=== PATIENT | male | born 1950 | race Caucasian/White ===

== ENCOUNTER 2016-07-26 07:44 | Day surgery (SDC) | payer MEDICARE, BC ==
[~2016-07-26] VITALS: Ht 175.3 cm; Wt 58.2 kg
[~2016-07-26 07:44] MED LIST: CELE20TA PO; LANTUS2P SQ; chemo
[2016-07-26 08:02] VITALS: BP 106/62; PULSE 71; RESP 20; TEMP 98.5; O2SAT 95
[2016-07-26] MEDS ORDERED: OXYC-395 PO (08:11)
[2016-07-26] MEDS ORDERED: B12-1CHW SL (08:11)
[2016-07-26] MEDS ORDERED: CHLORHEXIDINE GLUCONATE 2 % 1 PACK (2 CLOTHS) TOPICAL SCH (08:30)
[2016-07-26] MEDS ORDERED: SODIUM CHLORIDE 0.9% 1000 ML IV SCH (08:30)
[2016-07-26] MEDS: ceFAZolin 2 GM PREMIX 50 ML - gastrostomy and jejunostomy initial insertion IV SCH ×2 (09:11→12:41)
[2016-07-26] MEDS: VANCOMYCIN 1000 MG/NS 250 ML - implanted port/tunneled catheter IV SCH ×4 (09:12→12:41)
[2016-07-26] MEDS ORDERED: fentaNYL CITRATE 250 MCG/5 ML AMP ONE (10:31)
[2016-07-26] MEDS ORDERED: MIDAZOLAM HCL 5 MG/5 ML VIAL ONE (10:31)
[2016-07-26] MEDS ORDERED: LIDOCAINE 1%/EPINEPHrine 1:100,000 SOLN 20 ML VIAL ONE (10:33)
--- NOTE | 2016-07-26 11:07 | PD.RAD ---
Post Procedure Progress Note Pre Procedure Diagnosis: (1) Multiple myeloma Post Procedure Diagnosis: (1) Multiple myeloma Procedure Date: Jul 26, 2016 Supervising Radiologist: Facundo Harper Anesthesia: Local, Conscious Sedation Plan of Activity Patient to Unit: ROPU Patient Condition: Fair Additional Comments: Port placed via the right IJ. Catheter in good position. OK for use See PACS Report for procedural detail/treatment Facundo Harper MD Jul 26, 2016 11:07
[2016-07-26 11:15] VITALS: BP 123/54; PULSE 73; RESP 18; TEMP 97.6; O2SAT 98
[2016-07-26] MEDS ORDERED: SODIUM CHLORIDE 0.9% FLUSH 5 ML FLUSH IVF PRN (11:15)
[2016-07-26 11:30] VITALS: BP 128/59; PULSE 66; RESP 18; O2SAT 98
[2016-07-26 12:00] VITALS: BP 123/53; PULSE 61; RESP 18; O2SAT 97
[2016-07-26 12:30] VITALS: BP 109/57; PULSE 63; RESP 18; O2SAT 97
[2016-07-26 13:00] VITALS: BP 112/60; PULSE 68; RESP 18; O2SAT 96
--- NOTE | 2016-07-26 15:00 | RADRPT ---
EXAM DATE/TIME: 07/26/2016 10:43 [facility] COMPARISON: No previous studies available for comparison. INDICATIONS : Patient with a history of multiple myeloma and pancreatic cancer. MEDICAL HISTORY : Positive HARMEET titer Barretts esophagus CAD Osteoporosis Mulitple myeloma Pancreatic cancer Prostate cancer SURGICAL HISTORY : Back surgery Colonoscopy Prostectomy Cholecystectomy CABG and stent Appendectomy ENCOUNTER: Initial ACUITY: >1 year PAIN SCORE: 5/10 LOCATION: Back FLUORO TIME: 0.7 minutes SEDATION TIME: 30 minutes ACCESS: Right internal jugular vein SEDATION: 1.) 1.5 mg midazolam (Versed) IV 2.) 75 mcg fentanyl (Sublimaze) IV Prophylactic antibiotics were administered with appropriate pre-procedure timing. Vancomycin within 2 hours of procedure, Ancef (or alternative) within 1 hour of procedure. DEVICE: 1. 8 [place] single lumen Bard Power Port PROCEDURE : 1. Continuous pulse oximetry and EKG monitoring. 2. Intravenous conscious sedation. 3. Ultrasound guidance for venous access. 4. Fluoroscopic guided implantable central venous port placement. The patient was placed supine. The neck was prepped in sterile fashion. Full sterile technique was u sed, including cap, mask, sterile gloves and gown, and a large sterile sheet. Hand hygiene and 2% ch lorhexidine Betadine was utilized per protocol for cutaneous antisepsis with appropriate dry time for site. The skin and subcutaneous tissues were infiltrated with local anesthetic solution. Under direct ultrasound guidance, central venous access was accomplished in the targeted vessel. The ultrasound images depicting access guidance were stored and saved to PACS for permanent record. A s ubcutaneous pocket was created using blunt dissection. The port was introduced to the pocket. The c atheter tubing was fed through a subcutaneous tunnel to the venotomy site. The catheter tubing was c ut to a suitable length and then was introduced through a valved Peel-Away sheath and positioned with catheter tubing tip at the cavo-atrial junction level. The pocket incision was closed with subcutic ular Vicryl suture. Steri-Strips were applied. The port was flushed and locked with heparin solutio n per protocol. Sterile dressing was applied to the site. The patient tolerated the procedure well. Conscious sedation was performed with the prescribed dosages and duration as above. The patient yaya ated the procedure well and there were no complications. EKG and oximetry remained stable throughout the procedure. The patient was sent to post anesthesia recovery in stable condition. CONCLUSION: Uncomplicated ultrasound and fluoroscopic guided implanted central venous port catheter placement as described in detail above. An 8 [place] Power port was placed. Facundo Harper MD on July 26, 2016 at 14:59 Board Certified Radiologist. This report was verified electronically.
[2016-08-20] MEDS ORDERED: PANT40TA3 PO (10:05)
[2016-08-20] MEDS ORDERED: ONDA1TAB17 PO (10:05)
[2016-08-20] MEDS ORDERED: MEGE40TA PO (10:05)
[2016-08-20] MEDS ORDERED: PROC10TA PO (10:05)
[2016-08-20] MEDS ORDERED: CITA20TA4 PO ×2 (10:05→10:18)
[2016-08-20] MEDS ORDERED: URSO300C2 PO (10:05)
[2016-09-02] MEDS ORDERED: LANTUS2P SQ (15:06)
[2016-09-04] MEDS ORDERED: OXYC-395 PO (17:03)
[2016-11-01] MEDS ORDERED: LANTUS2P SQ (12:08)
[2016-11-02] MEDS ORDERED: LANTUS2P SQ (15:41)
== END 2016-07-26 15:40 | disposition home or self-care (01) ==
LOC: HROP 07:44 → HRIP 07:45 → HROP 15:40
PROVIDERS: ATTEND Internal Medicine Hematology & Oncology
DX: C90.00 Multiple myeloma not having achieved remission (principal); I25.10 Atherosclerotic heart disease of native coronary artery without angina pectoris; M81.0 Age-related osteoporosis without current pathological fracture; Z85.46 Personal history of malignant neoplasm of prostate; Z85.07 Personal history of malignant neoplasm of pancreas; Z95.1 Presence of aortocoronary bypass graft
CPT/HCPCS: 36561; 76937; 77001; 99152; 99153; C1788; J0690; J1642; J2250; J3010; J3370; J7030; J7050

== ENCOUNTER 2016-09-11 11:41 | Emergency (ER) | payer MEDICARE, BC ==
[~2016-09-11] VITALS: Ht 175.3 cm; Wt 54.0 kg
[~2016-09-11 11:41] MED LIST changes: +B12-1CHW SL; -CELE20TA PO; +CITA20TA4 PO; +MEGE40TA PO; +ONDA1TAB17 PO; +OXYC-395 PO; +PANT40TA3 PO; +PROC10TA PO; +URSO300C2 PO
[2016-09-11 11:48] VITALS: BP 105/70; PULSE 101; RESP 16; TEMP 98; O2SAT 100
[2016-09-11] MEDS ORDERED: SODIUM CHLOR 0.9% 1000 ML INJ 1,000 ML IV SCH (12:13)
--- NOTE | 2016-09-11 12:16 | PD ---
HPI Chief Complaint: General Weakness Time Seen by Provider: 12:05 Travel History International Travel<30 days: No Contact w/Intl Traveler<30days: No Traveled to known affect area: No History of Present Illness HPI This is a 66-year-old male with a history of multiple myeloma and pancreatic cancer on chemotherapy who presents to the emergency department with intermittent abdominal pain for 2 weeks, in the right upper quadrant and epigastrium, nonradiating, associated with multiple episodes of vomiting and decreased oral intake. His last bowel movement was 3 days ago and normal. He denies any fevers or chills. She is on chemotherapy and his last treatment was one week ago. PFSH Past Medical History Hx Anticoagulant Therapy: No Heart Rhythm Problems: No Cancer: Yes Cardiac Catheterization: Yes Cardiovascular Problems: Yes High Cholesterol: Yes Chemotherapy: Yes Chest Pain: Yes Congestive Heart Failure: No Coronary Artery Disease: Yes Diabetes: Yes Patient Takes Glucophage: No Diminished Hearing: No Endocrine: Yes Gastrointestinal Disorders: Yes (ulcer) GERD: Yes Genitourinary: No Hepatitis: No Hiatal Hernia: No Heparin Induced Thrombocytopen: No Hypertension: Yes Immune Disorder: No Implanted Vascular Access Dvce: Yes Kidney Stones: Yes Medical other: Yes Musculoskeletal: Yes (multiple myloma) Neurologic: No Psychiatric: Yes (Anxiety and Depression) Reproductive: No Respiratory: No Immunizations Current: No Myocardial Infarction: Yes Radiation Therapy: No Tetanus Vaccination: > 5 Years Influenza Vaccination: No Past Surgical History AICD: No Appendectomy: Yes Body Medical Devices: CARDIAC STENTS Cardiac Surgery: Yes (Cabg) Cholecystectomy: Yes Coronary Artery Bypass Graft: Yes Coronary Stent: Yes (2003) Ear Surgery: No Endocrine Surgery: No Eye Surgery: No Genitourinary Surgery: Yes (Prostatectomy) Gynecologic Surgery: No Insulin Pump: No Joint Replacement: No Neurologic Surgery: No Pacemaker: No Thoracic Surgery: Yes Other Surgery: Yes (Cabg, colecystecomy, back x 3, appendectomy, prostectomy) Family History Family Myocardial Infarction: Yes Social History Alcohol Use: No Tobacco Use: Yes (1 PPD) Substance Use: No Allergies-Medications (Allergen,Severity, Reaction): Coded Allergies: Contrast Media (Verified Allergy, Severe, 09/11/16) Reported Meds & Prescriptions Reported Meds & Active Scripts Active Oxycodone (Oxycodone HCl) 10 Mg Tab 10 Mg PO Q8H PRN Lantus Inj (Insulin Glargine) 1,000 Unit/10 Ml Vial 20 Units SQ HS Citalopram (Citalopram Hydrobromide) 20 Mg Tab 20 Mg PO DAILY Reported Prochlorperazine Maleate 10 Mg Tab 10 Mg PO Q6H PRN Ondansetron (Ondansetron HCl) 8 Mg Tab 8 Mg PO DAILY Ursodiol 300 Mg Cap 300 Mg PO TID Megestrol (Megestrol Acetate) 40 Mg Tab 40 Mg PO QID Pantoprazole (Pantoprazole Sodium) 40 Mg Tab 40 Mg PO DAILY [id number]-Iehega (Methylcobalamin) 1 Mg Chew 3,000 Mg SL DAILY PRN [chemo] Review of Systems Except as stated in HPI: all other systems reviewed are Neg Physical Exam Narrative GENERAL: Cachectic, no acute distress SKIN: Warm and dry. HEAD: Atraumatic. Normocephalic. EYES: Pupils equal and round. No injection or drainage. ENT: Moist mucous membranes NECK: Trachea midline. CARDIOVASCULAR: Regular rate and rhythm. No murmur appreciated. RESPIRATORY: Clear to auscultation. Breath sounds equal bilaterally. GASTROINTESTINAL: Abdomen soft, non-tender, nondistended. MUSCULOSKELETAL: No obvious deformities. NEUROLOGICAL: Awake and alert. No obvious cranial nerve deficits. Moving all extremities. PSYCHIATRIC: Appropriate mood and affect; insight and judgment normal. Data Data Last Documented VS Vital Signs Date Time Temp Pulse Resp B/P Pulse Ox O2 Delivery O2 Flow Rate FiO2 09/11/16 13:11 16 99 Room Air 09/11/16 13:11 70 132/75 09/11/16 11:48 98.0 Orders Complete Blood Count With Diff (09/11/16 12:13) Comprehensive Metabolic Panel (09/11/16 12:13) Lipase (09/11/16 12:13) Urinalysis - C+S If Indicated (09/11/16 12:13) Iv Access Insert/Monitor (09/11/16 12:13) Ecg Monitoring (09/11/16 12:13) Oximetry (09/11/16 12:13) Sodium Chlor 0.9% 1000 Ml Inj (Ns 1000 M (09/11/16 12:13) Sodium Chloride 0.9% Flush (Ns Flush) (09/11/16 12:15) Ct Abd/Pel W/O Iv Contrast (09/11/16 ) Labs Laboratory Tests Test 09/11/16 09/11/16 12:30 13:33 White Blood Count 2.0 TH/MM3 Red Blood Count 3.13 MIL/MM3 Hemoglobin 9.4 GM/DL Hematocrit 28.1 % Mean Corpuscular Volume 89.9 FL Mean Corpuscular Hemoglobin 29.9 PG Mean Corpuscular Hemoglobin 33.3 % Concent Red Cell Distribution Width 14.8 % Platelet Count 139 TH/MM3 Mean Platelet Volume 7.8 FL Neutrophils (%) (Auto) 54.2 % Lymphocytes (%) (Auto) 31.3 % Monocytes (%) (Auto) 11.9 % Eosinophils (%) (Auto) 1.4 % Basophils (%) (Auto) 1.2 % Neutrophils # (Auto) 1.2 TH/MM3 Lymphocytes # (Auto) 0.6 TH/MM3 Monocytes # (Auto) 0.2 TH/MM3 Eosinophils # (Auto) 0.0 TH/MM3 Basophils # (Auto) 0.0 TH/MM3 CBC Comment DIFF FINAL Differential Comment Sodium Level 145 MEQ/L Potassium Level 3.9 MEQ/L Chloride Level 114 MEQ/L Carbon Dioxide Level 22.0 MEQ/L Anion Gap 9 MEQ/L Blood Urea Nitrogen 23 MG/DL Creatinine 1.70 MG/DL Estimat Glomerular Filtration 40 ML/MIN Rate Random Glucose 173 MG/DL Calcium Level 8.3 MG/DL Total Bilirubin 0.6 MG/DL Aspartate Amino Transf 7 U/L (AST/SGOT) Alanine Aminotransferase 14 U/L (ALT/SGPT) Alkaline Phosphatase 90 U/L Total Protein 5.8 GM/DL Albumin 2.9 GM/DL Lipase 121 U/L Urine Collection Type CLEAN CATCH Urine Color YELLOW Urine Turbidity CLEAR Urine pH 5.5 Urine Specific Ridge 1.017 Urine Protein 30 mg/dL Urine Glucose (UA) 100 mg/dL Urine Ketones NEG mg/dL Urine Occult Blood TRACE Urine Nitrite NEG Urine Bilirubin NEG Urine Leukocyte Esterase NEG Urine RBC 0-3 /hpf Urine Amorphous Sediment FEW Urine Fine Granular Casts 0-2 /lpf Microscopic Urinalysis Comment CULT NOT INDICATED MDM Medical Decision Making Medical Screen Exam Complete: Yes Emergency Medical Condition: Yes Medical Record Reviewed: Yes (patient is being followed by Dr. Mcmahon for pancreatic cancer and multiple myeloma. On chemotherapy.) Interpretation(s) White count is 2. Anemia Renal insufficiency Urinalysis: No infection CT abdomen and pelvis: Biliary stent in place. Lucency occupying at least half the L5 vertebral body. Differential Diagnosis Cholangitis, biliary stent obstruction, pancreatitis, gastritis, peptic ulcer disease Narrative Course This is a 66-year-old male who presents to the emergency department with right upper quadrant abdominal pain, nausea and vomiting for several days. He was placed on a monitor and an IV was established. Patient was pain-free in the emergency department. Labs were obtained which were reassuring with no evidence of biliary obstruction. CT abdomen and pelvis demonstrates a large lucency at L5. I don't appreciate an etiology for the patient's pain. His lesion at L5 was discussed with him. I think patient is safe for discharge. He was provided with Phenergan suppositories and he will follow up as an outpatient with Dr. Espinal and with Dr. Mcmahon. I did discuss the case with Dr. Mcmahon who is on-call and he will see the patient in the office. He thinks this lesion is due to the myeloma, and unfortunately he feels the patient is getting worse and refractory to treatment and may be appropriate for hospice consultation. They will discuss this further in the office. Diagnosis Primary Impression: Abdominal pain Qualified Code: R10.9 - Abdominal pain, unspecified location Patient Instructions: General Instructions Additional Instructions: If you develop weakness of your legs, difficulty walking, numbness of her legs or your genital or rectal area, loss of your bowel or bladder, or difficulty urinating return to the emergency department immediately. Follow-up with Dr. Mcmahon and Dr. Barboza in the office. Med/Other Pt SpecificInfo: Prescription(s) given Scripts Promethazine Supp 25 Mg Supp25 Mg RECTAL Q6H PRN (NAUSEA OR VOMITING) #15 SUPP Ref 0 Prov:Kezia Chung MD 09/11/16 Disposition: 01 DISCHARGE HOME Condition: Stable Kezia Chung MD Sep 11, 2016 12:16
[2016-09-11 12:34] VITALS: O2SAT 99
[2016-09-11] MEDS: SODIUM CHLORIDE 0.9% FLUSH 5 ML FLUSH IVF PRN ×2 (12:40→14:46)
[2016-09-11 12:56] LABS: AUTOMATED NEUTROPHIL # 1.2 TH/MM3 (1.8-7.7); BASOPHIL % 1.2 % (0.0-2.0); EOSINOPHIL % 1.4 % (0.0-4.0); HEMATOCRIT 28.1 % (39.0-51.0); HEMO FLAGS DIFF FINAL; LYMPH % 31.3 % (9.0-44.0); LYMPHOCYTE # 0.6 TH/MM3 (1.0-4.8); MEAN CELL VOLUME 89.9 FL (80.0-100.0); MEAN CORPUSCULAR HEMOGLOBIN 29.9 PG (27.0-34.0); MEAN CORPUSCULAR HGB CONC 33.3 % (32.0-36.0); MONO % 11.9 % (0.0-8.0); NEUT % 54.2 % (16.0-70.0); PLATELET COUNT 139 TH/MM3 (150-450); RED BLOOD COUNT 3.13 MIL/MM3 (4.50-5.90); RED CELL DISTRIBUTION WIDTH 14.8 % (11.6-17.2)
[2016-09-11 13:00] LABS: CHLORIDE 114 MEQ/L (98-107); POTASSIUM 3.9 MEQ/L (3.5-5.1); SODIUM (NA) 145 MEQ/L (136-145)
[2016-09-11 13:05] LABS: ANION GAP 9 MEQ/L (5-15); BLOOD UREA NITROGEN 23 MG/DL (7-18)
[2016-09-11 13:07] LABS: ALT (GPT) 14 U/L (12-78); AST (GOT) 7 U/L (15-37)
[2016-09-11 13:08] LABS: GLOMERULAR FILTRATION RATE 40 ML/MIN (>89)
[2016-09-11 13:09] LABS: TOTAL BILIRUBIN ADULT 0.6 MG/DL (0.2-1.0)
[2016-09-11 13:10] LABS: ALKALINE PHOSPHATASE 90 U/L (45-117)
[2016-09-11 13:11] VITALS: BP 132/75; PULSE 70; RESP 16; O2SAT 100
[2016-09-11 13:48] LABS: BLOOD, URINE TRACE (NEG); GLUCOSE,URINE 100 mg/dL (NEG); KETONE, URINE NEG (NEG); NITRITE,URINE NEG (NEG); PH, URINE 5.5 (5.0-8.5)
[2016-09-11 13:50] LABS: METHOD OF COLLECTION CLEAN CATCH; URINE COLOR YELLOW (YELLW/STRAW)
[2016-09-11 13:52] LABS: COMMENT (UR) CULT NOT INDICATED; CULTURE IF INDICATED CULT NOT INDICATED; RBC, URINE 0-3 /hpf (0-3)
--- NOTE | 2016-09-11 13:54 | RADHPO ---
EXAM DATE/TIME: 09/11/2016 12:42 [facility] COMPARISON: No previous studies available for comparison. INDICATIONS: Right upper quadrant pain with nausea and vomiting. ORAL CONTRAST: No oral contrast ingested. RADIATION DOSE: 4.53 CTDIvol (mGy) MEDICAL HISTORY: Carcinoma, prostate. Cardiovascular disease Hypertension. Weaver's esophagus. Multiple myeloma. SURGICAL HISTORY: Appendectomy. Coronary artery stent. Cholecystectomy. CABG. Prostatectomy. Liver stent. ENCOUNTER: Initial ACUITY: 4 - 6 days PAIN SCALE: 4/10 LOCATION: Right upper quadrant TECHNIQUE: Volumetric scanning of the abdomen and pelvis was performed. Using automated exposure control and ad justment of the mA and/or kV according to patient size, radiation dose was kept as low as reasonably achievable to obtain optimal diagnostic quality images. FINDINGS: There is a biliary drain in place. The patient is status post cholecystectomy. There is some small hypodensities measuring up to 1 cm seen at the periphery of the right lobe of the liver. These are nonspecific. T he spleen, pancreas, and adrenal glands appear normal. There is a 0.6 cm area of calcification seen at the left renal pelvis without dilatation of the collecting system. The right kidney is unremarkable. There are scattered atherosclerotic calcifications throughout the arterial system. An aneurysm is not present. There is some thickening of the rectum which may be secondary to lack of distention. This is nonspecific. The bowel is otherwise unremarka ble. The pelvis structures appear grossly intact. There is a prominent area of lucency seen at the L5 vertebral body measuring 3.4 cm in the AP image, 3.1 cm in the transverse image and 2.4 cm in height. This lucent area occupies at least half of the L5 vertebr al body. There is degenerative change seen in the lower thoracic and lumbar spine. Lung bases are unremarkable. CONCLUSION: 1. Biliary stent in place. 2. A 6 mm calcification seen at the left renal pelvis likely represent a non-obstructing stone. No dilatation of the collecting system is seen. 3. Prominent area of lucency occupying at least half the L5 vertebral body. No other focal bone les ions are seen. This is nonspecific. This could represent a benign process such a large hemangioma o r other benign lesion. A metastatic however cannot be excluded. The lesion does appear solitary. G iven its size the patient is at risk for collapse of the L5 vertebral body. Jorge Ware MD on September 11, 2016 at 13:03 Board Certified Radiologist. This report was verified electronically.
[2016-09-11] MEDS ORDERED: PROM1SUP9 RECTAL (14:20)
[2016-11-01] MEDS ORDERED: LANTUS2P SQ (12:08)
[2016-11-02] MEDS ORDERED: LANTUS2P SQ (15:41)
== END 2016-09-11 14:50 | disposition home or self-care (01) ==
LOC: PHED 11:41
DX: R10.9 Unspecified abdominal pain (principal); C90.00 Multiple myeloma not having achieved remission; Z79.899 Other long term (current) drug therapy; E78.00 Pure hypercholesterolemia, unspecified; I25.10 Atherosclerotic heart disease of native coronary artery without angina pectoris; I10 Essential (primary) hypertension; Z87.442 Personal history of urinary calculi; F41.8 Other specified anxiety disorders; I25.2 Old myocardial infarction; Z95.5 Presence of coronary angioplasty implant and graft; F17.210 Nicotine dependence, cigarettes, uncomplicated
CPT/HCPCS: 74176; 80053; 81001; 83690; 85025; 96360; 99284; J1642; J7030

== ENCOUNTER 2016-11-06 22:45 | Inpatient (IN) | payer MEDICARE, BC ==
[~2016-11-06] VITALS: Ht 175.3 cm; Wt 58.3 kg
[~2016-11-06 22:45] MED LIST changes: +PROM1SUP9 RECTAL
[2016-11-06 22:51] VITALS: BP 158/89; PULSE 91; RESP 18; TEMP 98.2; O2SAT 99
[2016-11-06] MEDS ORDERED: SODIUM CHLORIDE 0.9% FLUSH 10 ML FLUSH IV FLUSH PRN ×2 (23:15)
--- NOTE | 2016-11-06 23:47 | RADHPO ---
EXAM DATE/TIME: 11/06/2016 23:16 [facility] COMPARISON: CT ABDOMEN & PELVIS W/O CONTRAST, September 11, 2016, 12:42. EXTERNAL COMPARISON : [facility], CT Abd/pelvis November 04, 2016 INDICATIONS : Left flank pain. ORAL CONTRAST: No oral contrast ingested. RADIATION DOSE: 7.90 CTDIvol (mGy) MEDICAL HISTORY : Hypertension. Renal calculi. Carcinoma, pancreas. Carcinoma, prostate. Multiple Myeloma. SURGICAL HISTORY : Cholecystectomy. Appendectomy.Prostatectomy.Stent in liver. ENCOUNTER: Initial ACUITY: 1 day PAIN SCALE: 7/10 LOCATION: Left flank TECHNIQUE: Volumetric scanning of the abdomen and pelvis was performed. Using automated exposure control and ad justment of the mA and/or kV according to patient size, radiation dose was kept as low as reasonably achievable to obtain optimal diagnostic quality images. FINDINGS: LOWER LUNGS: The visualized lower lungs are clear. LIVER: 2 sub-1 cm low-density lesions are seen involving the right lobe. These are stable from the prior lazara dy. There are low in density.. There is a Silastic stent within the common bile duct. Pneumobilia not ed. No biliary dilatation appreciated. There is no dilation of the biliary tree. No calcified galls tones. SPLEEN: Normal size without lesion. PANCREAS: Within normal limits. KIDNEYS: A 7 mm stone is seen at the UPJ generating hydronephrosis. No perinephric stranding or fluid collecti ons. A 1 mm nonobstructing stone involving the right kidney. ADRENAL GLANDS: Within normal limits. VASCULAR: There is no aortic aneurysm. BOWEL/MESENTERY: The stomach, small bowel, and colon demonstrate no acute abnormality. There is no free intraperitone al air or fluid. Scattered colonic diverticuli. Barium within the colon. ABDOMINAL WALL: Within normal limits. RETROPERITONEUM: There is no lymphadenopathy. BLADDER: No wall thickening or mass. REPRODUCTIVE: Within normal limits. INGUINAL: There is no lymphadenopathy or hernia. MUSCULOSKELETAL: Lucent lesion involving the L5 vertebral body is unchanged from the prior study. No other lucent lesi on seen throughout the visualized skeletal structures. Degenerative changes of the lumbar spine noted . CONCLUSION: 1. 7 mm obstructing stone at the left UPJ. 2. Lucent lesion involving L5 vertebral body. Exact etiology uncertain. Differential diagnostic consi derations remain metastatic focus versus benign process such as hemangioma. MRI could help differenti ate. 3. Silastic stent within the common bile but without dilatation. Pneumobilia noted. Meng Benavides Jr., MD on November 06, 2016 at 23:38 Board Certified Radiologist. This report was verified electronically.
[2016-11-06] MEDS ORDERED: MOBI15TA PO (23:55)
[2016-11-06] MEDS ORDERED: DILA4TAB2 PO (23:55)
[2016-11-06] MEDS ORDERED: TAMS5CAP PO (23:55)
[2016-11-06] MEDS ORDERED: ZOFR8TAB PO (23:55)
--- NOTE | 2016-11-06 23:57 | PD ---
HPI Chief Complaint: Flank/Kidney Pain Time Seen by Provider: 23:10 Travel History International Travel<30 days: No Contact w/Intl Traveler<30days: No Traveled to known affect area: No History of Present Illness HPI The patient is a 66-year-old male who has a left flank pain for several hours. He had his first chemotherapy today. The patient has 2 cancers, multiple myeloma and pancreatic cancer. The chemotherapy today was directed at pancreatic cancer. He does have a history of urinary stones and he has had 4 lithotripsies. He denies any fever or nausea. He did take nausea medicine earlier today and he did take a total of 8 mg of Dilaudid today, the last 4 mg being around 9:30 PM tonight. The patient is an insulin-dependent diabetic as well. The patient has not taken his insulin in 2 days, he forgot. PFSH Past Medical History Hx Anticoagulant Therapy: No Heart Rhythm Problems: No Cancer: Yes Cardiac Catheterization: Yes Cardiovascular Problems: Yes (cabg, stents) High Cholesterol: Yes Chemotherapy: Yes Chest Pain: Yes Congestive Heart Failure: No Coronary Artery Disease: Yes Diabetes: Yes Diminished Hearing: No Endocrine: Yes Gastrointestinal Disorders: Yes (ulcer) GERD: Yes Genitourinary: No Hepatitis: No Hiatal Hernia: No Heparin Induced Thrombocytopen: No Hypertension: Yes Immune Disorder: No Implanted Vascular Access Dvce: Yes Kidney Stones: Yes Musculoskeletal: Yes (multiple myloma) Neurologic: No Psychiatric: Yes (Anxiety and Depression) Reproductive: No Respiratory: No Immunizations Current: No Myocardial Infarction: Yes Radiation Therapy: No Past Surgical History AICD: No Appendectomy: Yes Body Medical Devices: CARDIAC STENTS Cardiac Surgery: Yes (Cabg) Cholecystectomy: Yes Coronary Artery Bypass Graft: Yes Coronary Stent: Yes (2003) Ear Surgery: No Endocrine Surgery: No Eye Surgery: No Genitourinary Surgery: Yes (Prostatectomy) Gynecologic Surgery: No Insulin Pump: No Joint Replacement: No Neurologic Surgery: No Pacemaker: No Thoracic Surgery: Yes Other Surgery: Yes (Cabg, colecystecomy, back x 3, appendectomy, prostectomy) Social History Alcohol Use: No Tobacco Use: Yes (1 PPD) Substance Use: No Allergies-Medications (Allergen,Severity, Reaction): Coded Allergies: Contrast Media (Verified Allergy, Severe, 11/07/16) Reported Meds & Prescriptions Reported Meds & Active Scripts Active Mobic (Meloxicam) 15 Mg Tab 15 Mg PO DAILY Zofran (Ondansetron HCl) 8 Mg Tab 8 Mg PO TID Flomax (Tamsulosin HCl) 0.4 Mg Cap 0.4 Mg PO HS Dilaudid (Hydromorphone HCl) 4 Mg Tab 4 Mg PO Q6H PRN Lantus Inj (Insulin Glargine) 1,000 Unit/10 Ml Vial 30 Units SQ HS Promethazine Supp (Promethazine HCl) 25 Mg Supp 25 Mg RECTAL Q6H PRN Oxycodone (Oxycodone HCl) 10 Mg Tab 10 Mg PO Q8H PRN Citalopram (Citalopram Hydrobromide) 20 Mg Tab 20 Mg PO DAILY Reported Prochlorperazine Maleate 10 Mg Tab 10 Mg PO Q6H PRN Ondansetron (Ondansetron HCl) 8 Mg Tab 8 Mg PO DAILY Ursodiol 300 Mg Cap 300 Mg PO TID Megestrol (Megestrol Acetate) 40 Mg Tab 40 Mg PO QID Pantoprazole (Pantoprazole Sodium) 40 Mg Tab 40 Mg PO DAILY [id number] (Methylcobalamin) 1 Mg Chew 3,000 Mg SL DAILY PRN [chemo] Review of Systems Except as stated in HPI: all other systems reviewed are Neg Physical Exam Narrative GENERAL: The patient is alert, oriented 3 and slight apparent distress with his left flank pain. His vital signs show blood pressure 158/89 but the rest the vital signs are normal. SKIN: Focused skin assessment warm/dry. No skin rash is noted. HEAD: Atraumatic. Normocephalic. EYES: Pupils equal and round. No scleral icterus. No injection or drainage. ENT: No nasal bleeding or discharge. Mucous membranes pink and moist. NECK: Trachea midline. No JVD. CARDIOVASCULAR: Regular rate and rhythm. No murmur appreciated. RESPIRATORY: No accessory muscle use. Clear to auscultation. Breath sounds equal bilaterally. I can completely reproduce the patient's pain by pressing on the left lower lateral ribs. GASTROINTESTINAL: Abdomen soft, with tenderness to direct palpation in the left upper quadrant, nondistended. Hepatic and splenic margins not palpable. No guarding or rebound is present. MUSCULOSKELETAL: No obvious deformities. No clubbing. No cyanosis. No edema. NEUROLOGICAL: Awake and alert. No obvious cranial nerve deficits. Motor grossly within normal limits. Normal speech. PSYCHIATRIC: Appropriate mood and affect; insight and judgment normal. Data Data Last Documented VS Vital Signs Date Time Temp Pulse Resp B/P Pulse Ox O2 Delivery O2 Flow Rate FiO2 11/06/16 22:51 98.2 91 18 158/89 99 Orders Iv Access Insert/Monitor (11/06/16 23:10) Ecg Monitoring (11/06/16 23:10) Oximetry (11/06/16 23:10) Sodium Chloride 0.9% Flush (Ns Flush) (11/06/16 23:15) Ct Abd/Pel W/O Iv Contrast (11/06/16 23:10) Sodium Chloride 0.9% Flush (Ns Flush) (11/06/16 23:15) Hydromorphone Pf Inj (Dilaudid Pf Inj) (11/07/16 00:00) Ondansetron Inj (Zofran Inj) (11/07/16 00:00) Tamsulosin (Flomax) (11/07/16 00:00) Complete Blood Count With Diff (11/07/16 00:24) Comprehensive Metabolic Panel (11/07/16 00:24) Urinalysis - C+S If Indicated (11/07/16 00:24) Admit Order (Ed Use Only) (11/07/16 00:29) Labs Laboratory Tests Test 11/07/16 00:00 White Blood Count 4.7 TH/MM3 Red Blood Count 2.04 MIL/MM3 Hemoglobin 6.5 GM/DL Hematocrit 19.9 % Mean Corpuscular Volume 97.6 FL Mean Corpuscular Hemoglobin 32.0 PG Mean Corpuscular Hemoglobin 32.8 % Concent Red Cell Distribution Width 13.5 % Platelet Count 148 TH/MM3 Mean Platelet Volume 8.8 FL Neutrophils (%) (Auto) 87.1 % Lymphocytes (%) (Auto) 8.5 % Monocytes (%) (Auto) 3.8 % Eosinophils (%) (Auto) 0.5 % Basophils (%) (Auto) 0.1 % Neutrophils # (Auto) 4.1 TH/MM3 Lymphocytes # (Auto) 0.4 TH/MM3 Monocytes # (Auto) 0.2 TH/MM3 Eosinophils # (Auto) 0.0 TH/MM3 Basophils # (Auto) 0.0 TH/MM3 CBC Comment DIFF FINAL Differential Comment Hematology Comments Sodium Level 139 MEQ/L Potassium Level 5.2 MEQ/L Chloride Level 108 MEQ/L Carbon Dioxide Level 18.5 MEQ/L Anion Gap 13 MEQ/L Blood Urea Nitrogen 58 MG/DL Creatinine 3.00 MG/DL Estimat Glomerular Filtration 21 ML/MIN Rate Random Glucose 556 MG/DL Calcium Level 8.1 MG/DL Total Bilirubin 0.5 MG/DL Aspartate Amino Transf 10 U/L (AST/SGOT) Alanine Aminotransferase 40 U/L (ALT/SGPT) Alkaline Phosphatase 234 U/L Total Protein 6.2 GM/DL Albumin 2.9 GM/DL MDM Medical Decision Making Medical Screen Exam Complete: Yes Emergency Medical Condition: Yes Medical Record Reviewed: Yes Interpretation(s) The CT abdomen/pelvis without IV contrast shows a 7 mm obstructing stone at the left UPJ. Also noted is a lucent lesion involving L5 vertebral body which may be a metastatic process versus hemangioma. Also noted is a Silastic stent within the common bile duct without dilatation and pneumobilia is noted. The hemoglobin is 6.5, the hemoglobin was 9.2 on the fifth of this month. The complete metabolic profile shows a potassium of 5.2, bicarbonate of 18.5 with a BUN of 58 and creatinine of 3.0 and calcium of 8.1 and total protein of 6.2 and albumin 2.9. The blood sugar is 505. At approximately 1:15 AM the lab called me and said the hemoglobin of 6.5 was an air, the hemoglobin is really 8.8 and the hematocrit is 26.5. Apparently, there was a lab here on the first hemoglobin. Differential Diagnosis Left ureteral stone, left rib pain, urinary tract infection Narrative Course I discussed the patient with Dr. Alonso and she requested the patient be full admit here at [place]. She will consult a urologist. The patient states that he does not wish to be resuscitated should his heart stop. He told me this at 050 this morning. A form will be filled out. The patient was alert and oriented 3 when he told me this. I discussed the patient with Dr. Braden and he felt that this did not need immediate stinting, the patient would not need to be transferred to [facility] and they could do this in the office if necessary. Physician Communication Physician Communication I discussed the patient with Drs. Acuña and Sharon. I also discussed the patient with Dr. Braden. Diagnosis Primary Impression: Left ureteral calculus Additional Impressions: Intractable pain Pancreatic cancer Multiple myeloma Poorly controlled diabetes mellitus Noncompliance with medications Anemia Renal insufficiency Admitting Information Admitting Physician Requests: Admit Scripts Meloxicam (Mobic)15 Mg Tab15 Mg PO DAILY #30 TAB Ref 0 Prov:Dudley Chery MD 11/06/16 Ondansetron (Zofran)8 Mg Tab8 Mg PO TID #30 TAB Ref 0 Prov:Dudley Chery MD 11/06/16 Tamsulosin (Flomax)0.4 Mg Cap0.4 Mg PO HS #30 CAP Ref 0 Prov:Dudley Chery MD 11/06/16 Hydromorphone (Dilaudid)4 Mg Tab4 Mg PO Q6H PRN (Pain Management) #21 TAB Ref 0 Prov:Dudley Chery MD 11/06/16 Dudley Chery MD November 06, 2016 23:57
[2016-11-07] VITALS (10 sets, daily range): BP systolic 128–158; BP diastolic 69–85; PULSE 71–102; RESP 18–20; TEMP 96.4–98.1; O2SAT 96–99
[2016-11-07] MEDS ORDERED: TAMSULOSIN HCL 0.4 MG CAP PO ONE
[2016-11-07] MEDS ORDERED: HYDROmorphone HCL PF 1 MG/ML VIAL IVP ONE
[2016-11-07] MEDS ORDERED: ONDANSETRON HCL 4 MG/2 ML VIAL IV ONE
[2016-11-07 00:35] LABS: AUTOMATED NEUTROPHIL # 4.1 TH/MM3 (1.8-7.7); BASOPHIL % 0.1 % (0.0-2.0); EOSINOPHIL % 0.5 % (0.0-4.0); LYMPH % 8.5 % (9.0-44.0); LYMPHOCYTE # 0.4 TH/MM3 (1.0-4.8); MEAN CELL VOLUME 97.6 FL (80.0-100.0); MEAN CORPUSCULAR HGB CONC 32.8 % (32.0-36.0); MONO % 3.8 % (0.0-8.0); NEUT % 87.1 % (16.0-70.0); PLATELET COUNT 148 TH/MM3 (150-450); RED BLOOD COUNT 2.04 MIL/MM3 (4.50-5.90); RED CELL DISTRIBUTION WIDTH 13.5 % (11.6-17.2); WHITE BLOOD COUNT 4.7 TH/MM3 (4.0-11.0)
[2016-11-07 00:40] LABS: CHLORIDE 108 MEQ/L (98-107); POTASSIUM 5.2 MEQ/L (3.5-5.1); SODIUM (NA) 139 MEQ/L (136-145)
[2016-11-07 00:44] LABS: ANION GAP 13 MEQ/L (5-15); BICARBONATE 18.5 MEQ/L (21.0-32.0); BLOOD UREA NITROGEN 58 MG/DL (7-18)
[2016-11-07 00:45] LABS: HEMO FLAGS DIFF FINAL
[2016-11-07] MEDS ORDERED: INSULIN HUMAN REGULAR 1,000 UNITS/10 ML VIAL IV PUSH ONE (00:45)
[2016-11-07 00:46] LABS: HEMATOCRIT 19.9 % (39.0-51.0)
[2016-11-07 00:47] LABS: ALT (GPT) 40 U/L (12-78); AST (GOT) 10 U/L (15-37); GLOMERULAR FILTRATION RATE 21 ML/MIN (>89)
[2016-11-07 00:48] LABS: TOTAL BILIRUBIN ADULT 0.5 MG/DL (0.2-1.0)
[2016-11-07] MEDS ORDERED: SODIUM CHLOR 0.9% 1000 ML INJ 1,000 ML IV SCH (00:58)
[2016-11-07] MEDS ORDERED: SODIUM CHLORIDE 0.9% FLUSH 10 ML FLUSH IV FLUSH PRN (01:00)
[2016-11-07] MEDS ORDERED: NALOXONE HCL 0.4 MG/ML AMP IV PRN (01:00)
[2016-11-07] MEDS ORDERED: SODIUM CHLOR 0.9% 250 ML INJ 250 ML IV ONE (01:00)
[2016-11-07] MEDS ORDERED: ONDANSETRON HCL 4 MG/2 ML VIAL IVP PRN (01:00)
[2016-11-07 01:13] LABS: ALKALINE PHOSPHATASE 234 U/L (45-117)
[2016-11-07] MEDS ORDERED: DEXTROSE 50% IN WATER 50 ML VIAL(D50) IV PUSH PRN ×2 (01:15→06:30)
[2016-11-07] MEDS ORDERED: GLUCAGON 1 MG/ML VIAL OTHER PRN ×2 (01:15→06:30)
[2016-11-07 01:22] LABS: AUTOMATED NEUTROPHIL # 3.5 TH/MM3 (1.8-7.7); BASOPHIL % 0.1 % (0.0-2.0); HEMATOCRIT 26.5 % (39.0-51.0); HEMO FLAGS DIFF FINAL; LYMPH % 8.6 % (9.0-44.0); LYMPHOCYTE # 0.3 TH/MM3 (1.0-4.8); MEAN CELL VOLUME 95.6 FL (80.0-100.0); MEAN CORPUSCULAR HEMOGLOBIN 31.7 PG (27.0-34.0); MEAN CORPUSCULAR HGB CONC 33.1 % (32.0-36.0); MONO % 1.1 % (0.0-8.0); NEUT % 90.2 % (16.0-70.0); PLATELET COUNT 121 TH/MM3 (150-450); RED BLOOD COUNT 2.77 MIL/MM3 (4.50-5.90); RED CELL DISTRIBUTION WIDTH 13.1 % (11.6-17.2); WHITE BLOOD COUNT 3.9 TH/MM3 (4.0-11.0)
[2016-11-07 01:53] LABS: BLOOD, URINE NEG (NEG); KETONE, URINE NEG (NEG); NITRITE,URINE NEG (NEG); PH, URINE 5.5 (5.0-8.5)
[2016-11-07 01:57] LABS: GLUCOSE,URINE 1000 OR GREATER mg/dL (NEG)
[2016-11-07 02:02] LABS: COMMENT (UR) CULT NOT INDICATED; CULTURE IF INDICATED CULT NOT INDICATED; RBC, URINE 0-2 /hpf (0-3); SQUAMOUS EPITHELIAL CELL URINE 0-5 /hpf (0-5); URINE COLOR STRAW (YELLW/STRAW); WBC, URINE 0-2 /hpf (0-5)
[2016-11-07] MEDS ORDERED: DEXT 5%-NACL 0.9% 1000 ML INJ 1,000 ML IV SCH (06:30)
[2016-11-07] MEDS: INSULIN ASPART SUPPLEMENTAL SCALE SQ SCH ×4 (07:33→21:22)
[2016-11-07] MEDS: SODIUM CHLORIDE 0.9% FLUSH 10 ML FLUSH IV FLUSH SCH ×2 (09:43→21:00)
--- NOTE | 2016-11-07 10:17 | HHI.HP ---
[facility] Service [facility] Primary Care Physician Ginny Ahmadi MD Admission Diagnosis left ureteral stone with intractable pain, pancreatic cancer, multip Diagnoses: Chief Complaint: Left flank pain nausea vomiting Travel History International Travel<30 Days: No Contact w/Intl Traveler <30 Da: No Traveled to Known Affected Are: No History of Present Illness 66 years old male with history of multiple myeloma and pancreatic cancer as well as coronary artery disease status post CABG and stenting, hyperlipidemia, diabetes mellitus who had his first session of chemotherapy yesterday morning patient stated in the afternoon he started feeling worsening left flank pain around 9 out of 10, along with nausea and episode of vomiting. No fever or chills no diarrhea or constipation no headache. The pain is constant and doesn' t transfer to the Groin, patient denied dysuria. Patient brought to the ED he was found to have a low glucose of 550 he admitted not taking his insulin or some of his medication. CT of the abdomen showed 7 mm obstructing stone in the left UPJ. As well as lucent area in the L5 vertebrae possible malignancy. Dr. Acuña oncologist was called from ED she requested admission, also Dr. schwartz neurologist has been contacted and he recommended to keep patient nothing by mouth. Patient was found to have- hyperkalemia with mild acidemia with anion gap of 13, patient was given iv fluid and insulin. He is doing better this morning, pain is still there but much better with the Dilaudid. Review of Systems All systems reviewed and was positive for what is mentioned in history of present illness otherwise negative Past Family Social History Past Medical History Coronary artery disease status post CABG and stenting Hyperlipidemia Diabetes mellitus Peptic ulcer GERD Multiple myeloma Pancreatic cancer Anxiety and depression History of appendectomy History of prostatectomy Past Surgical History As above Allergies: Coded Allergies: Contrast Media (Verified Allergy, Severe, 11/07/16) Family History His father had "kidney cancer " Social History He smokes one pack per day for over 30 years no alcohol or illicit drug abuse Physical Exam Vital Signs Vital Signs Date Time Temp Pulse Resp B/P Pulse Ox O2 Delivery O2 Flow Rate FiO2 11/07/16 08:00 96.7 96 20 142/85 98 11/07/16 04:00 96.4 82 20 158/76 98 11/07/16 02:30 80 11/07/16 02:25 98.1 94 20 155/76 98 11/07/16 02:00 96.7 82 19 149/82 97 11/07/16 01:20 97.9 96 20 152/80 99 Room Air 11/07/16 00:35 90 20 11/07/16 00:30 71 20 140/80 96 11/06/16 22:51 98.2 91 18 158/89 99 Physical Exam GENERAL: This is a well-nourished, well-developed patient, in no apparent distress. SKIN: No rashes, warm and dry HEAD: Atraumatic. Normocephalic. EYES: Pupils equal round and reactive. Extraocular motions intact. No scleral icterus. ENT: Nose without bleeding, or drainage, Airway patent. NECK: Trachea midline. Supple CARDIOVASCULAR: Regular rate and rhythm without murmurs, gallops, or rubs. RESPIRATORY: Fair air entry bilaterally. No wheezes, rales, or rhonchi. GASTROINTESTINAL: Abdomen soft, non-tender, nondistended. Positive bowel sounds MUSCULOSKELETAL: Extremities without clubbing, cyanosis, or edema. Pedal pulses appreciated NEUROLOGICAL: Awake and alert. Moves all extremity. Normal speech.no focal neurological deficit Laboratory Laboratory Tests Test 11/07/16 11/07/16 11/07/16 00:00 01:00 01:45 White Blood Count 4.7 3.9 Red Blood Count 2.04 2.77 Hemoglobin 6.5 8.8 Hematocrit 19.9 26.5 Mean Corpuscular Volume 97.6 95.6 Mean Corpuscular Hemoglobin 32.0 31.7 Mean Corpuscular Hemoglobin 32.8 33.1 Concent Red Cell Distribution Width 13.5 13.1 Platelet Count 148 121 Mean Platelet Volume 8.8 7.8 Neutrophils (%) (Auto) 87.1 90.2 Lymphocytes (%) (Auto) 8.5 8.6 Monocytes (%) (Auto) 3.8 1.1 Eosinophils (%) (Auto) 0.5 0.0 Basophils (%) (Auto) 0.1 0.1 Neutrophils # (Auto) 4.1 3.5 Lymphocytes # (Auto) 0.4 0.3 Monocytes # (Auto) 0.2 0.0 Eosinophils # (Auto) 0.0 0.0 Basophils # (Auto) 0.0 0.0 CBC Comment DIFF FINAL DIFF FINAL Differential Comment Hematology Comments Sodium Level 139 Potassium Level 5.2 Chloride Level 108 Carbon Dioxide Level 18.5 Anion Gap 13 Blood Urea Nitrogen 58 Creatinine 3.00 Estimat Glomerular Filtration 21 Rate Random Glucose 556 Calcium Level 8.1 Total Bilirubin 0.5 Aspartate Amino Transf 10 (AST/SGOT) Alanine Aminotransferase 40 (ALT/SGPT) Alkaline Phosphatase 234 Total Protein 6.2 Albumin 2.9 Urine Color STRAW Urine Turbidity CLEAR Urine pH 5.5 Urine Specific [place] 1.018 Urine Protein TRACE Urine Glucose (UA) 1000 OR GREATER Urine Ketones NEG Urine Occult Blood NEG Urine Nitrite NEG Urine Bilirubin NEG Urine Leukocyte Esterase NEG Urine RBC 0-2 Urine WBC 0-2 Urine Squamous Epithelial 0-5 Cells Urine Bacteria NONE Microscopic Urinalysis Comment CULT NOT INDICATED Result Diagram: 11/07/16 0100 11/07/16 0000 Imaging Last Impressions Abdomen/Pelvis CT 11/06/16 2310 Signed Impressions: Service Date/Time: Sunday, November 06, 2016 23:16 - CONCLUSION: 1. 7 mm obstructing stone at the left UPJ. 2. Lucent lesion involving L5 vertebral body. Exact etiology uncertain. Differential diagnostic considerations remain metastatic focus versus benign process such as hemangioma. MRI could help differentiate. 3. Silastic stent within the common bile but without dilatation. Pneumobilia noted. Meng Benavides Jr., MD Assessment and Plan Assessment and Plan 66 years old male with history of multiple myeloma pancreatic cancer who had first chemotherapy session today came with: Intractable left flank pain with nausea and vomiting secondary to obstructing 7 mm stone at the left ureter Dehydration with hyperkalemia 5.2, AG 13 mostly due to hyperglycemia History of multiple cancer (pancreatic multiple myeloma) status post chemotherapy induction Uncontrolled diabetes mellitus HERMILO on CKD stage III creatinine increased from baseline 1.7- 3 Chronic anemia Hypertension Thrombocytopenia Noncompliance DVT prophylaxis Plan: Admit to inpatient CT abdomen reviewed by me showing 7 mm obstructing stone in the left ureter and possible lucent area in the L5 vertebra could be metastatic lesion Urology and oncology consulted from ED, keep patient nothing by mouth possible cystoscopy or stenting for urology Iv fluid started Monitor BMP Accu-Chek with insulin sliding scale while nothing by mouth, resume her basal Lantus post procedure Pain management with Dilaudid Repeat BMP this a.m. Avoid nephrotoxin Discussed Condition With Patient Physician Certification 2 Midnight Certification Type: Admission for Inpatient Services Order for Inpatient Services The services are ordered in accordance with Medicare regulations or non- Medicare payer requirements, as applicable. In the case of services not specified as inpatient-only, they are appropriately provided as inpatient services in accordance with the 2-midnight benchmark. Estimated LOS (days): 2 days is the estimated time the patient will need to remain in the hospital, assuming treatment plan goals are met and no additional complications. Post-Hospital Plan: Not yet determined Jose A Gonzales MD November 07, 2016 10:17
[2016-11-07] MEDS: SODIUM CHLOR 0.9% 1000 ML INJ 1,000 ML IV SCH (11:00)
[2016-11-07 11:01] LABS: BICARBONATE 19.7 MEQ/L (21.0-32.0)
--- NOTE | 2016-11-07 17:34 | PD.CONS ---
HPI Service Urology Consult Requested By Reason for Consult Obstructing left ureteral calculus Primary Care Physician Ginny Ahmadi MD Diagnosis: History of Present Illness 66 year-old gentleman with multiple medical problems who presented to the emergency room with complaints of left flank pain. Workup included a CT scan of the abdomen and pelvis that demonstrated a 7 mm obstructing left ureteropelvic junction calculus. Other CT findings demonstrated a lucent area at the L5 vertebrae suspicious for malignancy. Patient also was noted to have hyperkalemia with mild acidemia and a decision was made to admit the patient. A urology consult was placed guarding further management of the left ureteral calculus. Upon further questioning the patient reports that he has had stones in the past and treated with shockwave lithotripsy. His last stone episode was approximately 2 years ago.. He also has a history of prostate cancer and is status post a radical prostatectomy back in 2008. Patient reports that he recently resumed chemotherapy for his pancreatic cancer. At the time of consultation the patient's pain was well controlled. I discussed passing a left ureteral stent and eventually treating the stone with outpatient shockwave lithotripsy. Review of Systems Constitutional: DENIES: Fever, Night Sweats Genitourinary: DENIES: Hematuria Musculoskeletal: COMPLAINS OF: Back pain (left flank) Except as stated in HPI: all other systems reviewed are Neg Past Family Social History Past Medical History Prostate cancer Pancreatic cancer Multiple myeloma Coronary artery disease Hyperlipidemia Diabetes mellitus Recurrent nephrolithiasis GERD Anxiety/depression Past Surgical History Status post radical prostatectomy Status post cardiac stenting Status post CABG Status post appendectomy Reported Medications Refer to EMR Allergies: Coded Allergies: Contrast Media (Verified Allergy, Severe, 11/07/16) Active Ordered Medications Refer to EMR Family History Father with history renal cancer Social History Smoker one pack per day for over 30 years Denies alcohol or illicit drug usage Physical Exam Vital Signs Date Time Temp Pulse Resp B/P Pulse Ox O2 Delivery O2 Flow Rate FiO2 11/07/16 16:00 98.0 102 20 131/69 98 11/07/16 12:00 97.7 102 20 135/75 98 11/07/16 08:00 96.7 96 20 142/85 98 11/07/16 04:00 96.4 82 20 158/76 98 11/07/16 02:30 80 11/07/16 02:25 98.1 94 20 155/76 98 11/07/16 02:00 96.7 82 19 149/82 97 11/07/16 01:20 97.9 96 20 152/80 99 Room Air 11/07/16 00:35 90 20 11/07/16 00:30 71 20 140/80 96 11/06/16 22:51 98.2 91 18 158/89 99 Physical Exam GENERAL: This is a well-nourished, well-developed patient, in no apparent distress. SKIN: No rashes, ecchymoses or lesions. Cool and dry. HEAD: Atraumatic. Normocephalic. No temporal or scalp tenderness. EYES: Pupils equal round and reactive. Extraocular motions intact. No scleral icterus. No injection or drainage. ENT: Nose without bleeding, purulent drainage or septal hematoma. Throat without erythema, tonsillar hypertrophy or exudate. Uvula midline. Airway patent. NECK: Trachea midline. No JVD or lymphadenopathy. Supple, nontender, no meningeal signs. CARDIOVASCULAR: Regular rate and rhythm without murmurs, gallops, or rubs. RESPIRATORY: Clear to auscultation. Breath sounds equal bilaterally. No wheezes , rales, or rhonchi. GASTROINTESTINAL: Abdomen soft, non-tender, nondistended. No hepato-splenomegaly , or palpable masses. No guarding. GENITOURINARY: No CVA tenderness MUSCULOSKELETAL: Extremities without clubbing, cyanosis, or edema. No joint tenderness, effusion, or edema noted. No calf tenderness. Negative Homans sign bilaterally. NEUROLOGICAL: Awake and alert. Cranial nerves II through XII intact. Motor and sensory grossly within normal limits. Five out of 5 muscle strength in all muscle groups. Normal speech. Laboratory Tests Test 11/07/16 11/07/16 11/07/16 11/07/16 00:00 01:00 01:45 10:15 White Blood Count 4.7 3.9 Red Blood Count 2.04 2.77 Hemoglobin 6.5 8.8 Hematocrit 19.9 26.5 Mean Corpuscular Volume 97.6 95.6 Mean Corpuscular Hemoglobin 32.0 31.7 Mean Corpuscular Hemoglobin 32.8 33.1 Concent Red Cell Distribution Width 13.5 13.1 Platelet Count 148 121 Mean Platelet Volume 8.8 7.8 Neutrophils (%) (Auto) 87.1 90.2 Lymphocytes (%) (Auto) 8.5 8.6 Monocytes (%) (Auto) 3.8 1.1 Eosinophils (%) (Auto) 0.5 0.0 Basophils (%) (Auto) 0.1 0.1 Neutrophils # (Auto) 4.1 3.5 Lymphocytes # (Auto) 0.4 0.3 Monocytes # (Auto) 0.2 0.0 Eosinophils # (Auto) 0.0 0.0 Basophils # (Auto) 0.0 0.0 CBC Comment DIFF FINAL DIFF FINAL Differential Comment Hematology Comments Sodium Level 139 144 Potassium Level 5.2 4.0 Chloride Level 108 113 Carbon Dioxide Level 18.5 19.7 Anion Gap 13 11 Blood Urea Nitrogen 58 58 Creatinine 3.00 2.80 Estimat Glomerular Filtration 21 23 Rate Random Glucose 556 218 Calcium Level 8.1 8.5 Total Bilirubin 0.5 Aspartate Amino Transf 10 (AST/SGOT) Alanine Aminotransferase 40 (ALT/SGPT) Alkaline Phosphatase 234 Total Protein 6.2 Albumin 2.9 Urine Color STRAW Urine Turbidity CLEAR Urine pH 5.5 Urine Specific [place] 1.018 Urine Protein TRACE Urine Glucose (UA) 1000 OR GREATER Urine Ketones NEG Urine Occult Blood NEG Urine Nitrite NEG Urine Bilirubin NEG Urine Leukocyte Esterase NEG Urine RBC 0-2 Urine WBC 0-2 Urine Squamous Epithelial 0-5 Cells Urine Bacteria NONE Microscopic Urinalysis Comment CULT NOT INDICATED Result Diagram: 11/07/16 0100 11/07/16 1015 Imaging Last Impressions Abdomen/Pelvis CT 11/06/16 2310 Signed Impressions: Service Date/Time: Sunday, November 06, 2016 23:16 - CONCLUSION: 1. 7 mm obstructing stone at the left UPJ. 2. Lucent lesion involving L5 vertebral body. Exact etiology uncertain. Differential diagnostic considerations remain metastatic focus versus benign process such as hemangioma. MRI could help differentiate. 3. Silastic stent within the common bile but without dilatation. Pneumobilia noted. Meng Benavides Jr., MD Assessment and Plan Assessment and Plan UROLOGIC IMPRESSION: Obstructing 7mm left proximal ureteral calculus PLAN: #1 npo after midnight #2 scheduled for cystoscopy and left ureteral stent placement tomorrow am #3 will eventually require outpatient ESWL Jean Carlos Braden MD November 07, 2016 17:34
--- NOTE | 2016-11-07 18:34 | MB ---
cc: LOY POPE M.D. DATE OF CONSULTATION: 11/07/2016 REASON FOR CONSULTATION: Oncology was consulted to render opinion regarding a patient with pancreatic cancer and multiple myeloma admitted with back pain. ATTENDING PHYSICIAN: Dr. Gonzales. HISTORY OF PRESENT ILLNESS: The patient is a very pleasant 66-year-old male with history of multiple myeloma treated in 2015. He was then found to have a pancreatic cancer in the head of the pancreas around May of 2016. He went to [facility] and was recommended to have neoadjuvant chemotherapy prior to resection. He received FOLFIRINOX chemotherapy from June of 2016 to August of 2016. He became very ill and was admitted to hospice. He recovered well from the chemotherapy side effects recently. His performance status has improved and Dr. Hess gave him a cycle of Abraxane and gemcitabine on November 06. When he went home last night, he started developing left flank pain; it was severe. He denies any fever or chills. He denies any chest pressure or palpitations. He denies any nausea or vomiting, abdominal pain or diarrhea. He denies hematuria or dysuria. He came to the hospital. He is now on pain medication. He is feeling better. PAST MEDICAL HISTORY: 1. Multiple myeloma. 2. Pancreatic cancer. 3. Weaver's esophagus. 4. Osteoporosis. 5. B12 deficiency.. 6. Diabetes mellitus. 7. Recurrent renal stone. He had a lithotripsy performed, the last one about two years ago. 8. Prostate cancer status prostatectomy in 2008. PAST SURGICAL HISTORY: 1. Prostatectomy in 2008. 2. Back surgery. 3. Lithotripsy four times. 4. Colonoscopy. 5. Cholecystectomy. 6. Coronary artery bypass graft surgery. 7. Coronary stent placement. 8. Appendectomy. FAMILY HISTORY: Family history is noncontributory. SOCIAL HISTORY: Positive tobacco. Denies alcohol use. ALLERGIES: CONTRAST MEDIA. MEDICATIONS: Insulin. REVIEW OF SYSTEMS: CONSTITUTIONAL: Denies any fever or chills, night sweats. EYES: Denies any blurry vision or double vision. ENT: Denies any mouth sores or voice changes. CARDIOVASCULAR: Denies any chest pressure or palpitations. RESPIRATORY: Denies any shortness of breath or cough. GI: Denies any nausea or vomiting, diarrhea or abdominal pain. : Denies any dysuria or hematuria. MUSCULOSKELETAL: As above. HEMATOLOGIC: Negative. ENDOCRINE: Negative. DERMATOLOGIC: Negative. PSYCHIATRIC: Negative. NEUROLOGIC: Negative. PHYSICAL EXAMINATION: VITAL SIGNS: Temperature 98, blood pressure 130/69, pulse 102, O2 saturation 98% room air. GENERAL: He is alert and oriented x3 and in no acute distress. HEAD, EYES, EARS, NOSE, THROAT: Atraumatic, normocephalic. Pupils equal, round, reactive to light. Extraocular muscles are intact. No scleral icterus. OROPHARYNX: Dry mucosa. No lesions. No thrush. No mucositis. NECK: No thyromegaly. No palpable mass. LYMPHATIC: No palpable cervical, clavicular, axillary or inguinal lymph nodes. CARDIOVASCULAR: Regular S1 and S2. Slightly tachycardic. No murmurs. LUNGS: Clear to auscultation, no wheezing or rhonchi. ABDOMEN: Abdomen soft and nontender. I could not palpate liver or spleen. EXTREMITIES: No cyanosis or clubbing. No edema. BACK: Slight left flank tenderness. NEUROLOGIC EXAM: Nonfocal. LABORATORY DATA: Reviewed. ASSESSMENT: 1. Left flank pain started acutely yesterday evening after he went home from chemotherapy. He came to the hospital and CT of the abdomen and pelvis showed a 7 mm stone in the left kidney. He has had a history of recurrent kidney stones and had lithotripsy four times in the past and the last one was two years ago. I think the kidney stone is the cause of his pain. I doubt that this is due to the chemotherapy. He has been evaluated by urology for further management. 2. Pancreatic cancer. He was first diagnosed in May of 2016. He had ERCP and stent placement for obstructive jaundice. He was found to have a mass in the head of the pancreas. He went to [facility] to consider resection. He was recommended to have neoadjuvant chemotherapy. Was given FOLFIRINOX from June of 2016 to August of 2016. He tolerated it poorly and had declining performance status. He was admitted to hospice; he however slowly recover from the chemotherapy side effects. His performance status has significantly improved and Dr. Hess gave him Abraxane and gemcitabine yesterday. He has tolerated it well. He has had no side effects at this time. He has mild pancytopenia and will need to be monitored as his blood count could trend lower due to the chemotherapy. 3. Multiple myeloma. He has IgA kappa multiple myeloma. Bone marrow biopsy May of 2015 showed 80% plasmacytosis. He also have poor prognostic markers with gain of 1q and monosomy 13. He had diffuse bone lesion. He was treated with Velcade and Decadron and was later maintained on Velcade. The treatment was stopped when he was found to have pancreatic cancer. His CT abdomen and pelvis yesterday showed L5 lesion which I think is the multiple myeloma bone lesion. He has no significant back pain at this time. 4. History of prostate cancer status post prostatectomy in 2008. 5. Weaver's esophagus. 6. Osteoporosis. 7. B12 deficiency. 8. Diabetes mellitus. RECOMMENDATIONS: 1. Await cystoscopy and urethral stent placement per urology. 2. Monitor CBC. 3. He can follow up with Dr. Hess to continue chemotherapy. 4. DVT prophylaxis. Discussed with the patient and his . Thank you, Dr. Gonzales, for asking me to see this patient. MD DILCIA Farah/JCC /5:44 PM /6:12 PM MTDJosh
[2016-11-07] MEDS ORDERED: INSULIN DETEMIR 100 UNITS/ML VIAL SQ SCH (21:00)
[2016-11-08] VITALS: BP 159/83; PULSE 95; RESP 18; TEMP 98; O2SAT 99
[2016-11-08] MEDS: HYDROmorphone HCL PF 1 MG/ML VIAL IV PUSH PRN ×2 (02:24→06:42)
[2016-11-08] MEDS: SODIUM CHLOR 0.9% 1000 ML INJ 1,000 ML IV SCH ×2 (03:40→14:07)
[2016-11-08 04:00] VITALS: BP 164/90; PULSE 108; RESP 16; TEMP 98.4; O2SAT 98
[2016-11-08 06:46] LABS: AUTOMATED NEUTROPHIL # 5.3 TH/MM3 (1.8-7.7); BASOPHIL % 0.1 % (0.0-2.0); EOSINOPHIL % 0.5 % (0.0-4.0); HEMATOCRIT 26.9 % (39.0-51.0); HEMO FLAGS DIFF FINAL; LYMPH % 8.3 % (9.0-44.0); LYMPHOCYTE # 0.5 TH/MM3 (1.0-4.8); MEAN CELL VOLUME 94.7 FL (80.0-100.0); MEAN CORPUSCULAR HEMOGLOBIN 31.8 PG (27.0-34.0); MEAN CORPUSCULAR HGB CONC 33.6 % (32.0-36.0); MONO % 1.5 % (0.0-8.0); NEUT % 89.6 % (16.0-70.0); PLATELET COUNT 113 TH/MM3 (150-450); RED BLOOD COUNT 2.84 MIL/MM3 (4.50-5.90); RED CELL DISTRIBUTION WIDTH 12.9 % (11.6-17.2); WHITE BLOOD COUNT 5.9 TH/MM3 (4.0-11.0)
[2016-11-08 06:47] LABS: POTASSIUM 4.3 MEQ/L (3.5-5.1)
[2016-11-08 06:51] LABS: BICARBONATE 17.8 MEQ/L (21.0-32.0)
[2016-11-08] MEDS: INSULIN ASPART SUPPLEMENTAL SCALE SQ SCH ×2 (07:00→11:00)
[2016-11-08 08:51] VITALS: BP 150/84; PULSE 106; RESP 18; TEMP 97.1; O2SAT 99
[2016-11-08] MEDS: SODIUM CHLORIDE 0.9% FLUSH 10 ML FLUSH IV FLUSH SCH (09:00)
[2016-11-08 10:33] VITALS: BP 129/71; PULSE 102; RESP 14; TEMP 98.4; O2SAT 99
[2016-11-08] MEDS ORDERED: MIDAZOLAM HCL 2 MG/2 ML VIAL ONE ×2 (10:55→11:26)
[2016-11-08] MEDS ORDERED: SODIUM CHLORIDE 0.9% INJ 50 ML ONE (11:30)
[2016-11-08] MEDS ORDERED: ceFAZolin INJ 1,000 MG VIAL ONE (11:30)
[2016-11-08 12:00] VITALS: BP 132/75; PULSE 72; RESP 16; TEMP 97.6; O2SAT 99
--- NOTE | 2016-11-08 12:16 | PD.OP ---
Operative Report Date of Surgery: November 08, 2016 Preoperative Diagnosis: (1) Left ureteral calculus Postoperative Diagnosis: (1) Left ureteral calculus Procedure: Cystoscopy and left ureteral stent placement Anesthesia: General Surgeon: Jean Carlos Braden Switchboard Operator Helper(s): None Operation and Findings: Indication for procedure: Case of a pleasant 66 year-old gentleman with a 7 mm obstructing left proximal ureteral calculus who presents now for cystoscopy and left ureteral stent placement. Operative procedure in detail: Patient was brought to the operating room suite and placed supine on the OR table. He was then placed under general anesthesia. He was then repositioned in the dorsal lithotomy position and prepped and draped in normal sterile fashion. After appropriate timeout was undertaken a proceeded with cystoscopic evaluation utilizing the rigid cystoscope with the 20 Polish sheath and the 30 lens. The urethra was patent without stricture formation. The prostate was surgically absent. Further passive cystoscope within the urinary bladder revealed both via left ureteral orifice he is to be in correct anatomic position. There was clear reflux from the right orifice and there was no reflux noted on the left. There were no bladder mucosal lesions, calculi or diverticula formation. Next a sensor 0.35 wire was advanced up the patient's left ureter and coiled within the left kidney. A 6 Polish open-ended catheter was then advanced over the wire to manipulate the stone in a cephalad direction. The open-ended catheter was next exchanged for a 6 Polish 24 cm double-J stent. The stent was placed under both cystoscopic and fluoroscopic guidance without difficulty and once the stent was in proper position and the trailing string was removed. The bladder was extremely low uric and fluid and cystoscope withdrawn. Patient tolerated the procedures without complications and was transferred to the PACU in satisfactory condition. Jean Carlos Braden MD November 08, 2016 12:16
[2016-11-08 12:50] VITALS: BP 99/77; PULSE 91; RESP 16; TEMP 98; O2SAT 95
[2016-11-08] MEDS ORDERED: DO NOT ADM ANY ANTICOAGULANT DRUGS PRN (13:30)
--- NOTE | 2016-11-08 14:39 | HHI.PR ---
Subjective Remarks Laying in bed about to start his physical therapy evaluation Patient had cystoscopy with stenting by the urology and cleared for discharge Discussed with PT to evaluate the need for home health nursing and PT Objective Vitals Vital Signs Date Time Temp Pulse Resp B/P Pulse Ox O2 Delivery O2 Flow Rate FiO2 11/08/16 12:50 98.0 91 16 99/77 95 Room Air 11/08/16 12:38 85 16 99/77 100 11/08/16 12:22 97.9 93 16 117/65 94 Room Air 11/08/16 12:00 97.6 72 16 132/75 99 11/08/16 10:33 98.4 102 14 129/71 99 11/08/16 08:51 97.1 106 18 150/84 99 11/08/16 07:23 16 11/08/16 04:00 98.4 108 16 164/90 98 11/08/16 00:00 98.0 95 18 159/83 99 11/07/16 20:00 94 11/07/16 20:00 97.7 102 18 128/84 98 11/07/16 16:00 98.0 102 20 131/69 98 I/O 11/07/16 11/07/16 11/07/16 11/08/16 11/08/16 11/08/16 07:00 15:00 23:00 07:00 15:00 23:00 Intake Total 607 ml 0 ml 600 ml Output Total 525 ml 200 ml 300 ml 700 ml 300 ml Balance 82 ml -200 ml -300 ml -700 ml 300 ml Intake Oral 240 ml 0 ml IV Total 367 ml Other 600 ml Output Urine Total 525 ml 200 ml 300 ml 700 ml 300 ml Bladder Scan Volume Amount 210 ml # Voids 3 1 # Bowel Movements 1 0 Result Diagram: 11/08/16 0611/08/16 06 Objective Remarks GENERAL: This is a well-nourished, well-developed patient, in no apparent distress. SKIN: No rashes, warm and dry HEAD: Atraumatic. Normocephalic. EYES: Pupils equal round and reactive. Extraocular motions intact. No scleral icterus. ENT: Nose without bleeding, or drainage, Airway patent. NECK: Trachea midline. Supple CARDIOVASCULAR: Regular rate and rhythm without murmurs, gallops, or rubs. RESPIRATORY: Fair air entry bilaterally. No wheezes, rales, or rhonchi. GASTROINTESTINAL: Abdomen soft, non-tender, nondistended. Positive bowel sounds MUSCULOSKELETAL: Extremities without clubbing, cyanosis, or edema. Pedal pulses appreciated A/P Assessment and Plan 66 years old male with history of multiple myeloma pancreatic cancer who had first chemotherapy session today came with: Intractable left flank pain with nausea and vomiting secondary to obstructing 7 mm stone at the left ureter Dehydration with hyperkalemia 5.2, AG 13 mostly due to hyperglycemia History of multiple cancer (pancreatic multiple myeloma) status post chemotherapy induction Uncontrolled diabetes mellitus HERMILO on CKD stage III creatinine increased from baseline 1.7- 3 Chronic anemia Hypertension Thrombocytopenia Noncompliance DVT prophylaxis Plan: CT abdomen reviewed by me showing 7 mm obstructing stone in the left ureter and possible lucent area in the L5 vertebra could be metastatic lesion Urology and oncology consulted from ED, status post cystoscopy and stenting Iv fluid started Monitor BMP Accu-Chek with insulin sliding scale while nothing by mouth, resume her basal Lantus post procedure Pain management with Dilaudid Avoid nephrotoxin 11/08: Patient came from cystoscopy and stenting cleared by urology, I discussed with the patient and with the physical therapist, his thing she's not been to be able to take care him but per PT patient is relatively mobilizing okay with a walker, patient initially came with uncontrolled blood sugar he may benefit of some home health care for nursing for short term, patient to follow up with oncology for further recommendation on continuing chemotherapy Discharge Planning Discharge patient to home Condition on discharge: Improved Healthy heart ADA 1800 Diet as tolerated activity per PT recommendation Rx written: See med rec Follow-up with primary care physician, urology and oncology in one week Jose A Gonzales MD November 08, 2016 14:39
--- NOTE | 2016-11-08 14:40 | HHI.FF ---
Face to Face Verification Diagnosis: (1) Diabetes mellitus, type II (2) Left ureteral calculus (3) Renal insufficiency (4) Noncompliance with medications (5) Poorly controlled diabetes mellitus (6) Multiple myeloma (7) Intractable pain Physical Therapy Order: Evaluate and Treat Home Health Nursing Order: Medical education Diabetic education Nursing assessment with vital signs I have seen patient Phuc Greenwood on 11/08/16. My clinical findings support the need for the requested home health care services because: Ltd mobility - disease progression Limited ability to care for self I certify that my clinical findings support that this patient is homebound because: Unable to use public transportation Jose A Gonzales MD November 08, 2016 14:40
[2016-11-08] MEDS ORDERED: PROPOFOL 200 MG/20 ML AMP IV ONE (15:59)
[2016-11-08] MEDS ORDERED: ONDANSETRON HCL 4 MG/2 ML VIAL IV PUSH ONE (15:59)
[2016-11-08] MEDS ORDERED: PHENYLEPH/NS 1000 MCG/10 ML SYR IV ONE (15:59)
== END 2016-11-08 16:00 | disposition home or self-care (01) | DRG 693 ==
LOC: PHED 22:45 → PHEDA 11-07 00:32 → PH3B 11-07 02:13
PROVIDERS: ADMIT Hospitalist; ATTEND Hospitalist
PROC: 0T778DZ Dilation of Left Ureter with Intraluminal Device, Via Natural or Artificial Opening Endoscopic (ICD-10-PCS; principal; 2016-11-08 11:38)
DX: N20.2 Calculus of kidney with calculus of ureter (principal); D61.810 Antineoplastic chemotherapy induced pancytopenia; N17.9 Acute kidney failure, unspecified; C90.00 Multiple myeloma not having achieved remission; E87.2 Acidosis; C25.0 Malignant neoplasm of head of pancreas; E11.22 Type 2 diabetes mellitus with diabetic chronic kidney disease; K22.70 Barrett's esophagus without dysplasia; N18.3 Chronic kidney disease, stage 3 (moderate); E11.65 Type 2 diabetes mellitus with hyperglycemia; E86.0 Dehydration; I12.9 Hypertensive chronic kidney disease with stage 1 through stage 4 chronic kidney disease, or unspecified chronic kidney disease; E87.5 Hyperkalemia; Z87.442 Personal history of urinary calculi; I25.10 Atherosclerotic heart disease of native coronary artery without angina pectoris; Z95.5 Presence of coronary angioplasty implant and graft; Z95.1 Presence of aortocoronary bypass graft; E78.00 Pure hypercholesterolemia, unspecified; K21.9 Gastro-esophageal reflux disease without esophagitis; F32.9 Major depressive disorder, single episode, unspecified; F41.9 Anxiety disorder, unspecified; I25.2 Old myocardial infarction; F17.210 Nicotine dependence, cigarettes, uncomplicated; Z91.14 Patient's other noncompliance with medication regimen; Z87.11 Personal history of peptic ulcer disease; Z90.49 Acquired absence of other specified parts of digestive tract; Z90.79 Acquired absence of other genital organ(s); Z85.46 Personal history of malignant neoplasm of prostate; E78.5 Hyperlipidemia, unspecified; M81.0 Age-related osteoporosis without current pathological fracture; E53.8 Deficiency of other specified B group vitamins; T45.1X5A Adverse effect of antineoplastic and immunosuppressive drugs, initial encounter; Y92.9 Unspecified place or not applicable; Z79.4 Long term (current) use of insulin
CPT/HCPCS: 74176; 76000; 80048; 80053; 81001; 82948; 85025; 96367; 96374; 96375; 96413; 96417; C1769; C2617; G0463; J0690; J1100; J1170; J1626; J1642; J1815; J2250; J2370; J2405; J3010; J7030; J7050; J9201; J9264